=== PATIENT | male | born 1935 | race Caucasian/White ===

== ENCOUNTER 2017-06-19 13:22 | Inpatient (IN) | payer OTHER ==
[~2017-06-19] VITALS: Ht 154.9 cm; Wt 51.7 kg
[2017-06-19 19:24] LABS: BASOPHIL % 0.4 % (0-2); PLATELET COUNT 142 x10^3mcL (130-400)
[2017-06-19 19:28] LABS: CALCIUM 8.7 mg/dL (8.5-10.1); CARBON DIOXIDE 28.1 mmol/L (21-32); CHLORIDE SERUM 99 mmol/L (98-107); CREATININE SERUM 0.7 mg/dL (0.7-1.3); GLUCOSE SERUM 101 mg/dL (74-106); POTASSIUM SERUM 3.5 mmol/L (3.5-5.1); SODIUM SERUM 139 mmol/L (136-145)
[2017-06-19 19:33] LABS: RED CELL DISTRIBUTION WIDTH 16.5 % (11.5-14.5)
[2017-06-19 19:34] LABS: ALKALINE PHOSPHATASE 76 U/L (46-116); ALT/SGPT 30 U/L (16-63); AST/SGOT 36 U/L (15-37); BILIRUBIN TOTAL 0.59 mg/dL (0.20-1.00); CHOLESTEROL 148 mg/dL (<200); PHOSPHOROUS 3.2 mg/dL (2.5-4.9); URIC ACID 3.7 mg/dL (3.5-7.2)
[2017-06-19 19:35] LABS: HDL CHOLESTEROL 96 mg/dL (40-60)
[2017-06-19 19:47] LABS: CHOLESTEROL/HDL RATIO 1.5; MAGNESIUM 2.4 mg/dL (1.8-2.4)
[2017-06-19 20:00] LABS: T3 TOTAL 1.01 ng/mL
[2017-06-19 20:09] LABS: FREE T4 1.2 ng/dL (0.76-1.46); T4(THYROXINE) 7.8 ug/dL (4.7-13.3)
[2017-06-19 21:02] VITALS: BP 163/109
[2017-06-20] MEDS ORDERED: HYDROCHLOROTH12.5 M3 PO (00:11)
[2017-06-20 05:58] VITALS: BP 149/81
[2017-06-20 06:07] VITALS: BP 149/81
[2017-06-20 06:22] LABS: CALCIUM 8.3 mg/dL (8.5-10.1); CARBON DIOXIDE 24.5 mmol/L (21-32); CHLORIDE SERUM 103 mmol/L (98-107); CREATININE SERUM 0.7 mg/dL (0.7-1.3); GLUCOSE SERUM 95 mg/dL (74-106); POTASSIUM SERUM 3.5 mmol/L (3.5-5.1); SODIUM SERUM 138 mmol/L (136-145)
[2017-06-20 06:55] LABS: BASOPHIL % 0.3 % (0-2)
[2017-06-20 07:08] LABS: PLATELET COUNT 118 x10^3mcL (130-400); RED CELL DISTRIBUTION WIDTH 16.4 % (11.5-14.5)
[2017-06-20 10:25] VITALS: BP 143/88
[2017-06-20 13:43] VITALS: BP 136/77
[2017-06-20 15:11] LABS: RED BLOOD CELLS 4.28 M/mm3 (4.52-5.90)
[2017-06-20 15:16] LABS: IRON 77 ug/dL (65-170); TOTAL IRON BINDING CAPACITY 287 ug/dL (250-450)
[2017-06-20 16:56] VITALS: BP 122/71
[2017-06-20 21:15] VITALS: BP 141/80
[2017-06-21 05:30] VITALS: BP 123/58
[2017-06-21 06:23] LABS: CALCIUM 8.3 mg/dL (8.5-10.1); CARBON DIOXIDE 27.8 mmol/L (21-32); CHLORIDE SERUM 105 mmol/L (98-107); CREATININE SERUM 0.7 mg/dL (0.7-1.3); GLUCOSE SERUM 90 mg/dL (74-106); POTASSIUM SERUM 3.5 mmol/L (3.5-5.1); SODIUM SERUM 140 mmol/L (136-145)
[2017-06-21 07:32] LABS: PLATELET COUNT 121 x10^3mcL (130-400); RED CELL DISTRIBUTION WIDTH 16.5 % (11.5-14.5)
[2017-06-21 09:00] VITALS: BP 157/75
[2017-06-21] MEDS ORDERED: LISINOPRIL10 MG PO (11:54)
[2017-06-21 13:23] LABS: SEGMENTED NEUTROPHILS 68 % (37-75)
[2017-06-21 13:24] LABS: ATYPICAL LYMPH 4 %; MONOCYTE 12 % (0-7); PLATELET MORPHOLOGY D; rbc morphology (normal/abnorm) ABNORMAL (NORMAL)
[2017-06-21 14:03] VITALS: BP 157/75
== END 2017-06-21 14:34 | disposition home or self-care (01) | DRG 392 ==
LOC: ED 13:22 → MU 19:19 → DU 19:19 → MU 19:19 → DU 20:38 → MU 06-21 06:45
PROVIDERS: Emergency Medicine; Internal Medicine Gastroenterology; ADMIT Family Medicine
PROC: 0D738ZZ Dilation of Lower Esophagus, Via Natural or Artificial Opening Endoscopic (ICD-10-PCS; principal; 2017-06-20 10:15)
PROC: 0DB68ZX Excision of Stomach, Via Natural or Artificial Opening Endoscopic, Diagnostic (ICD-10-PCS; 2017-06-20 10:15)
DX: K22.4 Dyskinesia of esophagus (principal); Z68.1 Body mass index [BMI] 19.9 or less, adult; K29.40 Chronic atrophic gastritis without bleeding; I16.0 Hypertensive urgency; K08.109 Complete loss of teeth, unspecified cause, unspecified class; R73.03 Prediabetes; J44.9 Chronic obstructive pulmonary disease, unspecified; D64.9 Anemia, unspecified
CPT/HCPCS: 43220; 43235; 82962; 83880; 84439; C1769; J1200; J1610; J2250; J2310; J2405; J3010; J3490; J7030; Q0092; Q9967